=== PATIENT | male | born 1965 | race Caucasian/White ===

== ENCOUNTER 2018-12-05 09:27 | Emergency (ER) | payer OTHER ==
[~2018-12-05] VITALS: Ht 175.3 cm; Wt 88.5 kg
--- NOTE | 2018-12-05 09:30 | NUR ---
pt walked into [facility] dizziness, nausea since since [id number] am this morning while at work. pt says that his symptoms has improved, but still has some dizziness and nausea.
[2018-12-05] MEDS ORDERED: IV NORMAL SALINE 1000 ML BAG IV ONE (10:00)
[2018-12-05 10:06] LABS: BASOPHILS # (AUTO) 0.1 K/uL (0.0-8.0); BASOPHILS % (AUTO) 0.6 % (0.0-2.0); EOSINOPHILS # (AUTO) 0.1 K/uL (0.0-0.7); EOSINOPHILS % (AUTO) 1.6 % (0.0-7.0); HEMATOCRIT 41.4 % (36.7-47.1); HEMOGLOBIN 14.3 g/dL (12.5-16.3); LYMPHOCYTES % (AUTO) 22.2 % (20.5-51.5); MEAN CORPUSCULAR HEMOGLOBIN 30.8 uug (23.8-33.4); MEAN CORPUSCULAR HGB CONC 35 g/dL (32.5-36.3); MEAN CORPUSCULAR VOLUME 89.2 fL (73.0-96.2); MONOCYTES # (AUTO) 0.4 K/uL (2.0-10.0); MONOCYTES % (AUTO) 4.6 % (0.0-11.0); NEUTROPHILS # (AUTO) 6.4 K/uL (1.8-8.9); PLATELET COUNT (AUTO) 214 K/uL (152-348); RED BLOOD CELL COUNT(AUTO) 4.64 MIL/uL (4.06-5.63)
[2018-12-05 10:13] LABS: CREATININE 1.1 mg/dL (0.6-1.3); POTASSIUM 3.9 mmol/L (3.5-5.1)
[2018-12-05 10:19] LABS: BILIRUBIN,TOTAL 0.3 mg/dL (0.2-1.0); TOTAL PROTEIN, SERUM 6.7 g/dL (6.4-8.2)
--- NOTE | 2018-12-05 10:36 | NUR ---
pt resting, no sign of distress.
--- NOTE | 2018-12-05 10:56 | NUR ---
Patient discharged to home in stable conditon. Written and verbal after care instructions given. Patient verbalizes understanding of instructions.pt walks in steady gait. pt says feels better. deneis nausea or dizziness at this time.
[2018-12-05 10:57] VITALS: BP 129/77
--- NOTE | 2018-12-15 13:33 | NUR ---
LATE ENTRY 12/05/18: NS 1000ML BOLUS GIVEN VIA SALINE LOCK 20GA TO RAC START TIME: 1000 COMPLETE TIME: 1055
== END 2018-12-05 10:57 | disposition home or self-care (01) ==
LOC: ER 09:27
DX: R42 Dizziness and giddiness (principal); R11.0 Nausea; R51 Headache
CPT/HCPCS: 36415; 70030-TC; 70450; 71045; 85025; 93005; A4663; J7030